=== PATIENT | female | born 1955 | race Caucasian/White ===

== ENCOUNTER 2020-06-14 09:04 | Inpatient (IN) | payer OTHER ==
[~2020-06-14] VITALS: Ht 162.6 cm; Wt 54.4 kg
[2020-06-14 09:08] VITALS: BP 170/111
[2020-06-14] MEDS ORDERED: LEVOTHYROXINE88 MC1 PO (09:14)
[2020-06-14] MEDS ORDERED: PROAIR HFA8.5 GM INH (09:15)
[2020-06-14] MEDS ORDERED: SPIRIVA RESPIMAT4 G1 INH (09:16)
[2020-06-14] MEDS ORDERED: WIXELA 100-501 EACH INH (09:17)
[2020-06-14 09:40] LABS: ABSOLUTE BASOPHILS 0.1 thou/uL (0.0-0.2); ABSOLUTE EOSINOPHILS 0.4 thou/uL (0.0-0.7); ABSOLUTE LYMPHOCYTES 2.2 thou/uL (0.8-5.3); ABSOLUTE MONOCYTES 0.8 thou/uL (0.0-1.2); ABSOLUTE NEUTROPHILS 7.7 thou/uL (1.6-8.1); BASOPHILS 1.3 %; EOSINOPHILS 3.7 %; HEMATOCRIT 44.4 % (37.0-47.0); HEMOGLOBIN 14.4 gm/dL (12.0-15.0); LYMPHOCYTES 19.6 %; MCH 29.2 pg (26.0-34.0); MCHC 32.3 g/dL (28.0-37.0); MCV 90.1 fL (80.0-100.0); MONOCYTES 6.8 %; MPV 7.3 fl. (7.2-11.1); NUCLEATED RBCS 0 /100WBC; PLATELET COUNT* 524 thou/uL (150-400); POLYS 68.6 %; RBC 4.93 mil/uL (4.20-5.00); RDW-CV 13.3 % (10.5-14.5); WBC 11.2 thou/uL (4.0-11.0)
[2020-06-14 09:54] LABS: APTT 25.1 Seconds (25.0-31.3); INR 0.9; PROTIME 10.1 Seconds (9.20-11.50)
[2020-06-14 09:57] LABS: CALCIUM 9.6 mg/dL (8.5-10.1); CREATININE 0.7 mg/dL (0.6-1.3); POTASSIUM 3.5 mmol/L (3.5-5.1)
[2020-06-14 10:02] LABS: ALBUMIN 3.7 g/dL (3.4-5.0); TOTAL BILIRUBIN 0.5 mg/dL (<0.1-1.0); TOTAL PROTEIN 8.6 g/dL (6.4-8.2)
[2020-06-14 10:23] LABS: BE -0.4 mmol/L (-2 to +3); PCO2 38.6 mmHg (35.0-45.0); pH 7.412 (7.340-7.450)
[2020-06-14 10:26] LABS: PO2 54.1 mmHg (75.0-100.0)
[2020-06-14 11:40] VITALS: BP 120/76
[2020-06-14 12:00] VITALS: BP 120/76
--- NOTE | 2020-06-14 16:28 | EKG ---
[place] [address] ELECTROCARDIOGRAM REPORT Name: RIGO CURIEL Room: [address] ADM IN .R.#: [id number] Admission: 06/14/20 Attend Phys: Radha Smith, Discharge: Date of : 51 Date of Service: 06/14/20911 Report #: [id number] THIS REPORT FOR: //name// [facility] ED Test Date: 2020-06-14 Test Time: 09:12:28 Pat Name: RIGO CURIEL Department: Room: [facility] Gender: F [employer] Manager: : 1955 Requested By: Amari Veloz Order Number: [id number] MD: Jules Jurado Measurements Intervals [place] Rate: 105 P: 78 MI: 174 QRS: 2 QRSD: 85 T: 62 QT: 318 QTc: 421 Interpretive Statements Sinus tachycardia Probable left atrial enlargement No previous ECG available for comparison Electronically Signed On 06-14-2020 16:27:48 CDT by Jules Jurado [email or web address] <ELECTRONICALLY SIGNED> By: Jules Jurado MD, [facility] 06/14/20 1627 1 1 Jules Jurado MD, [facility] /EPI
[2020-06-14 16:37] VITALS: BP 119/81
[2020-06-14 20:15] VITALS: BP 147/92
[2020-06-15] VITALS: BP 148/83
[2020-06-15 04:00] VITALS: BP 145/94
[2020-06-15 08:00] VITALS: BP 132/90
[2020-06-15 11:53] VITALS: BP 131/88
[2020-06-15 16:40] VITALS: BP 109/71
[2020-06-15 20:00] VITALS: BP 142/96
[2020-06-16 00:15] VITALS: BP 127/74
[2020-06-16 04:52] LABS: HEMATOCRIT 34.9 % (37.0-47.0); MCHC 32.6 g/dL (28.0-37.0); MPV 7.1 fl. (7.2-11.1); RBC 3.92 mil/uL (4.20-5.00); RDW-CV 12.9 % (10.5-14.5); WBC 17.9 thou/uL (4.0-11.0)
[2020-06-16 05:02] LABS: CALCIUM 9.6 mg/dL (8.5-10.1); CREATININE 0.6 mg/dL (0.6-1.3); POTASSIUM 4.1 mmol/L (3.5-5.1)
[2020-06-16 05:04] LABS: HEMOGLOBIN 11.4 gm/dL (12.0-15.0)
[2020-06-16 05:19] VITALS: BP 146/68
[2020-06-16 08:00] VITALS: BP 113/68
[2020-06-16] MEDS ORDERED: BENZONATATE100 MG PO (10:56)
[2020-06-16] MEDS ORDERED: AUGMENTIN 875-1 EACH PO (11:00)
[2020-06-16 13:04] VITALS: BP 133/85
[2020-06-16] MEDS ORDERED: RAYOS5 MG PO (13:32)
[2020-06-16] MEDS ORDERED: NEBULIZER MISCELL (13:32)
[2020-06-16] MEDS ORDERED: IPRAT-ALBUT 0.5-3 ML INH (13:34)
[2020-06-16 13:57] VITALS: BP 133/85
[2020-06-16] MEDS ORDERED: PREDNISONE 20 M20 MG PO (14:25)
== END 2020-06-16 15:07 | disposition home or self-care (01) | DRG 189 ==
LOC: M.ERS 09:04 → M.TBA-ER 09:43 → M.2W 09:43
PROVIDERS: Family Medicine; Internal Medicine; ADMIT Internal Medicine; ATTEND Internal Medicine
DX: J96.01 Acute respiratory failure with hypoxia (principal); R65.11 Systemic inflammatory response syndrome (SIRS) of non-infectious origin with acute organ dysfunction; J44.1 Chronic obstructive pulmonary disease with (acute) exacerbation; E03.9 Hypothyroidism, unspecified; F17.210 Nicotine dependence, cigarettes, uncomplicated; D47.3 Essential (hemorrhagic) thrombocythemia; Z20.822 Contact with and (suspected) exposure to COVID-19; Z79.899 Other long term (current) drug therapy; Z82.49 Family history of ischemic heart disease and other diseases of the circulatory system